=== PATIENT | female | born 1980 | race Caucasian/White ===

== ENCOUNTER 2024-11-12 08:26 | Outpatient (REF) | payer OTHER, SELFPAY ==
--- NOTE | ~2024-11-12 | XR_ITS ---
CLINICAL HISTORY: PAIN IN RIGHT ELBOW 3 view right elbow Comparison: None Findings: No acute fractures or dislocations. No significant loss of joint space, osteophytes, or erosions. No joint effusion. No radiopaque foreign body. IMPRESSION: 1. No acute findings This document has been electronically signed by: Lucas Hadley MD on 11/15/2024 10:43:43
== END 2024-11-12 08:27 | disposition home or self-care (01) ==
LOC: HO.XRAY 08:26
PROVIDERS: PCP Internal Medicine; Visit Provider Registered Nurse
DX: M25.521 Pain in right elbow (principal)
CPT/HCPCS: 73080

== ENCOUNTER → 2024-11-12 08:36 | Outpatient (BNV) | payer OTHER, SELFPAY | PROVIDERS: PCP Internal Medicine; Visit Provider Radiology Vascular & Interventional Radiology | DX: M25.521 Pain in right elbow (principal) | CPT/HCPCS: 73080 ==

== ENCOUNTER 2025-05-11 08:55 | Outpatient (AMB) | payer OTHER, SELFPAY ==
--- NOTE | 2025-05-11 09:02 | A.OFFVIS_ITS ---
Vital Signs 05/11/25 09:02 Height 5 ft 5 in Intake Visit Reasons: FM Allergies No Known Allergies Allergy (Verified 05/11/25 09:08) Medication List - Last Reconciled 05/11/25 by Gricelda William CNP acetaminophen (Tylenol) 650 mg PO Q6H PRN diclofenac sodium 75 mg PO BID PRN meclizine 25 mg PO Q12H PRN methylphenidate HCl ER (Concerta) 36 mg PO QAM methylphenidate HCl ER (Concerta) 54 mg PO QAM naproxen sodium (Aleve) 220 mg PO Q12H PRN ondansetron 4 mg PO DAILY rizatriptan 10 mg PO DAILY HPI Comments Details: Migraines have been better over the last 3 months. Getting about 1-2 migraines/month with nausea. Rizatriptan as needed helps, but makes her feel tired and hungover after taking. Concerta 54mg not helping as much as it was before. Notices that she is more easily distracted, not able to focus on tasks as well, and sometimes puts off doing tasks. 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 Continues with pain in both elbows and forearms. Ongoing numbness to fingertips and hands, cramping type pain occasionally in thumbs, L > R. Aleve helped some in the past, but no longer taking due to GI issues. Occasional burning and shooting pains to hands and arms. No new or increased weakness, but still sometimes drops objects. Rheumatology referral placed at last appointment, but she was not contacted with appointment. Started with pain to R elbow around 09/2024 that would come and go, but got more consistent in 11/2024. Numbness in hands and fingertips, L > R. Burning and shooting pains to hands. Dropping objects. Wakes with pain, numbness, and pins and needles in both hands. Aleve works better than diclofenac. Wrist braces do not help and make it worse. She is left-handed. She works as [employer]. No specific trigger, accident, or injury. She does not want NCV/EMG as previous test was very painful and she was in pain for days after. Concerta helps with focus and ability to complete tasks. Previously, she would start multiple tasks and feel overwhelmed. Uses rizatriptan as needed for migraines, but makes her tired. Occasional dizziness, feeling like room is spinning, and nausea, which may be triggered by certain head positions or movements. In the past, she was getting migraines 4-5x/month, using Aleve and Excedrin migraine, then rizatriptan if needed. Has visual aura, photophobia. Manuel rd feeling on dorsum of right hand intermittently continues. Did not feel like Concerta 36mg was helping like it was before. Did not notice much difference when she took medication compared to days she did not. Was having trouble focusing and completing tasks. Tried propranolol, gave her chest pains and made her face bloated. Topiramate did not help. She was diagnosed with ADHD 5 years ago by her psychiatrist. She did well on Adderall 50 mg a day for the first 3 years. It helped at first, but felt more anxious and paranoid. Tried Ritalin in the past. She has also had migraines since age 20. No triggers have been identified. There is no aura. She gets a disabling headache with nausea, vomiting, photophobia and sonophobia and has to be in a quiet dark room for one to 2 days. She has a family history of migraine in her maternal grandfather, mother and one of her sisters gets migraine. Burning and numbness in hands and legs exp. lateral legs. [facility] Medical History (Updated 05/11/25 @ 09:16 by Gricelda William CNP) COVID Anxiety Fibromyalgia Carpal tunnel syndrome of left wrist Bilateral carpal tunnel syndrome Sensory neuropathy Hypothyroidism Depression Hypertension ADHD (attention deficit hyperactivity disorder) Migraine Family History (Updated 05/10/25 @ 21:08 by Tawanna Klein MA) Maternal Grandmother Migraine Social History (Updated 05/10/25 @ 21:09 by Tawanna Klein MA) Patient Tobacco Use Status: Current everyday Tobacco user Review of Systems Const Denies chills, Denies daytime sleepiness, Reports difficulty sleeping, Denies fatigue, Denies fever(s), Denies frequent falls, Reports headache(s), Denies increased appetite, Denies poor appetite, Denies snoring, Denies weakness, Denies weight gain and Denies weight loss Eyes Denies loss of vision ENT Denies vertigo, Denies dizziness, Reports headache(s) and Reports neck pain Card Denies chest pain at rest, Denies chest pain with activity, Denies syncope, Denies leg edema, Denies palpitations, Denies dyspnea and Denies dyspnea on exertion Resp Denies cough, Denies dyspnea, Denies dyspnea on exertion and Denies snoring GI Denies abdominal pain, Denies constipation, Denies heartburn, Denies diarrhea and Denies nausea Denies urinary frequency, Denies urinary incontinence and Denies urinary urgency Musc Denies abnormal gait, Denies back pain, Reports myalgias, Reports arthralgias, Reports neck pain, Reports numbness, Denies stiffness and Reports tingling Neuro Denies abnormal gait, Denies vertigo, Denies dizziness, Denies syncope, Denies frequent falls, Reports headache(s), Denies lack of coordination, Denies loss of vision, Denies memory loss, Reports numbness, Denies Other visual disturbances, Denies restless legs, Denies seizure-like activity, Reports tingling, Denies paresthesias, Denies tremor(s) and Denies weakness Psych Reports anxiety, Denies depression, Reports difficulty concentrating, Denies memory loss, Denies visual hallucinations and Denies hallucinations Endo Denies fatigue and Denies palpitations Physical Exam Const Other: General Appearance:? normal, in no acute distress. Heart:? S1, S2 normal, no murmurs. Lungs:? clear anteriorly and posteriorly. Musculoskeletal:? normal. Extremities:? no edema. Psych:? alert, oriented, cognitive function intact, cooperative with exam. Neuro Other: Abnormal Neurological Findings:?5-/5 grasp, finger spread, APB bilaterally. 5-/5 L Triceps Mental Status: alert and oriented X 3. Normal attention, orientation, memory, and affect. Cranial Nerves: Pupils are equal, round, and reactive to light. External ocular muscles are intact. Visual colbert are full, no ptosis. Face is symmetrical, no facial weakness or droop. Facial sensations are normal. Tongue protrudes in midline. Palate elevates symmetrically. Shoulder shrugging is normal Motor Examination: As above, otherwise normal muscle tone, bulk and strength. No atrophy or fasciculations. No drift of the extended upper extremities. DTR 2+. Plantars are flexor. Straight Leg Raisin degrees. Sensory Exam: Normal light touch, temperature, pinprick, vibration, and joint- position sensations. Rhomberg sign is absent. Coordination: No ataxia. No titubation. Wnrsee-[id number], [id number]-[id number]-[id number] test, and rapid alternating movements were normal. Gait Exam: Within normal limits. Cerebellar Signs: Gxylea-qn-dusv and kuub-kl-[id number] is normal. No dysdiadochokinesia. Extrapyramidal System: No tremor, rigidity with normal facial expressions. No bradykinesia. No bradyphrenia. Normal arm swing and posture. No propulsion or retropulsion. Speech: Normal. No dysphasia or dysarthria. Results Reviewed Results Reviewed: 01/20/24 NCV of RUE showed only early CTS. 12/30/24 MRI C spine : Mild disc dessication and early spondylotic changes Assessment & Plan Assessment & Plan (1) Fibromyalgia: Comment: DX in 20s Code(s): M79.7 - Fibromyalgia Category: Medical Plan: Rheumatology referral placed. She does not want NCV/EMG as previous test was very painful and she was in pain for days after. Tried and failed wrist braces and NSAIDs (diclofenac and Aleve) (2) Migraine: Code(s): G43.909 - Migraine, unspecified, not intractable, without status migrainosus Category: Medical Qualifiers: Migraine type: unspecified Status migrainosus presence: without status migrainosus Intractability: not intractable Qualified Code(s): G43.909 - Migraine, unspecified, not intractable, without status migrainosus Plan: Continue rizatriptan 10mg 1 tablet as needed for migraines Continue ondansetron 4mg 1 tablet as needed for nausea (3) ADHD (attention deficit hyperactivity disorder): Code(s): F90.9 - Attention-deficit hyperactivity disorder, unspecified type Category: Medical Qualifiers: Attention deficit-hyperactivity disorder type: unspecified Qualified Code(s): F90.9 - Attention-deficit hyperactivity disorder, unspecified type Plan: Discussed treatment options, including trying different medication. She tried Adderall in the past, which helped but side effects of increased anxiety, and Ritalin. She was functioning well, working part-time as [employer] with no work performance issues, and no medication side effects. Recommend continuing current medication and patient agreed, can readdress in the future as needed. Continue Concerta 54mg 1 tablet in the morning Plan . Coding Level of Care Code Est Pt Level 4 (93601) Diagnoses Fibromyalgia M79.7 Migraine without status migrainosus, not intractable, unspecified migraine type G43.909 Migraine type: unspecified Status migrainosus presence: without status migrainosus Intractability: not intractable Attention deficit hyperactivity disorder (ADHD), unspecified ADHD type F90.9 Attention deficit-hyperactivity disorder type: unspecified
--- OUTSIDE RECORDS SUMMARY | 2025-05-11 09:08 | XMS_ITS | Clinical Summary ---
Author Organization [facility] it Address [address] [place] [address] Care Team Providers Care Display Fabrication Supervisor Name Role Phone Addy Givens MD Primary Care Provider [phone] Surgical History Surgery Date Site/Laterality Comments CERVICAL BIOPSY W/ LOOP ELECTRODE EXCISION PROCEDURE: SC CONIZATION CERVIX W/WO D&C RPR ELTRD EXC OVARIAN CYST REMOVAL 2003 PROCEDURE: SC OVARIAN CYSTECTOMY UNI/BI KIDNEY STONE SURGERY october 2015 PROCEDURE: SC NEPHROLITHOTOMY REMOVAL CALCULUS Medical History Medical History Date Comments Other specified personal his tory presenting hazards to health(V15.89) DX:Other specifie d personal history presenting hazards to health(V15.89) Kidney stones 12/24/2016 DX:Kidney stones ; COMMENT: S/p cystoscopy, stents (removed) W/recurrent UTI Fibromyalgia 04/03/2011 DX:Fibromyalgia Depression 04/03/2011 DX:Depression Migraines 11/14/2011 DX:Migraines Tobacco use disorder 09/13/2009 DX:Tobacco use disorder Adhd 11/26/2017 DX:ADHD Anxiety 11/26/2017 DX:Anxiety Hyperlipidemia 02/20/2021 DX:Hyperlipidemi a Family History Medical History Relation Name Comments Lymphoma Aunt Other: mva Father COPD Maternal Grandfather Diabetes Maternal Grandfather Arthritis Maternal Grandmother Diabetes Maternal Grandmother Thyroid disease Maternal Grandmother Dementia Paternal Grandfather Diabetes Paternal Grandfather Alzheimer's disease Paternal Grandmother Diabetes Paternal Grandmother Thyroid disease Paternal Grandmother Relation Name Status Comments Aunt Daughter Alive AGE 12 Father Maternal Grandfather Maternal Grandmother Alive Mother Alive RA Paternal Grandfather Alive Paternal Grandmother Sister Alive Son Alive AGE 15 Social History Tobacco Use Types Packs/Day Years Used Date Smoking Tobacco: Every Day Cigarettes Last attempted to quit: 12/14/2021 Smokeless Tobacco: Never Alcohol Use Standard Drinks/Week Comments Not Currently 0 (1 standard drink = 0.6 oz pur e alcohol) Comments Unknown Sex and Gender Information Value Date Recorded Sex Assigned at Not on file Legal Sex Female 6:34 PM EST Gender Identity Not on file Sexual Orientation Not on file Obstetrics History Last Filed Vital Signs Vital Sign Reading Time Taken Comments Blood Pressure 140/90 04/15/2022 8:44 AM EDT Sitting L Arm Pulse 100 04/15/2022 8:44 AM EDT Temperature - - Respiratory Rate - - Oxygen Saturation - - Inhaled Oxygen Concentration - - Weight 75.7 kg (166 lb 12.8 oz) 04/15/2022 8:44 AM EDT Height 165.1 cm (5' 5 ) 04/15/2022 8:44 AM EDT Body Mass Index 27.76 04/15/2022 8:44 AM EDT Plan of Treatment Health Maintenance Due Date Last Done Comments Breast Cancer Screening 1982 Pneumococcal Vaccine: Pediatrics (0 to 5 Years) and At-Risk Patients (6 to 49 Years) (1 of 2 - PCV) 2001 Cervical Cancer Screening: P ap Smear 04/20/2021 04/20/2018 Cholesterol Screening (Lipid Panel) 10/05/2022 Depression Screening 10/05/2022 HIV Screening 10/05/2022 Hepatitis C Screening 10/05/2022 Social Influencers of Health Screening 10/05/2022 DTaP,Tdap,and Td Vaccines (2 - Td or Tdap) 03/04/2024 03/04/2014 COVID-19 Vaccine (3 - 2023-2 5 season) 2024 03/10/2021, 02/17/2021 Influenza Vaccine (#1) 2025 Hepatitis B Vaccines Completed 10/28/2014, 04/18/2014, 03/18/2014 HIB Vaccines Aged Out No longer eligi ble based on patient's age to complete this topic HPV Vaccines Aged Out No longer eligi ble based on patient's age to complete this topic Hepatitis A Vaccines Aged Out No long er eligible based on patient's age to complete this topic IPV Vaccines Aged Out No longer eligi ble based on patient's age to complete this topic MMR Vaccines Aged Out No longer eligi ble based on patient's age to complete this topic Meningococcal ACWY Vaccine Aged Out N o longer eligible based on patient's age to complete this topic Meningococcal B Vaccine Aged Out No l onger eligible based on patient's age to complete this topic RSV Immunization Patients Under 20 months Aged Out No longer eligible b ased on patient's age to complete this topic Varicella Vaccines Aged Out No longer eligible based on patient's age to complete this topic Procedures Procedure Name Priority Date/Time Associated Diagnosis Comments PAP SMEAR Routine 04/20/2018 from Last 3 Months or Most Recently Relevant to Health Maintenance Results * Pap smear (04/20/2018) 04/20/2018 Narrative HISTORICAL TESTING LAB RESULTING AGENCY - 04/22/2018 1:27 PM EDT [id number] THINPREP PAP, IMAGED: NEGATIVE FOR SQUAMOUS INTRAEPITHELIAL LESION AND MALIGNANCY . CLUE CELLS ARE PRESENT. RESULT OF APTIMA HIGH RISK HPV ASSAY: NEGATIVE (SEROTYPES 16,18,31,33,35,39,45,51,52,56,58,59,66,68) COLBY DOBBINS(ASCP) (CASE ELECTRONICALLY SIGNED 04 22 2018) ADEQUACY: SATISFACTORY. ENDOCERVICAL/TRANSFORMATION ZONE COMPONENT ABSENT. SOURCE: THINPREP PAP HPV ANY DX: REFLEX 16 AND 18, CERVICAL, IMAGED: CLINICAL INFORMATION: HPV ANY DIAGNOSIS. Z12.4, Z01.419, HORMONES, PAP HX: POSITIVE HPV 2012 us Tangela Alfonso [facility] CYTOLOGY ORDERABLES Shazia choudhury Result HISTORICAL TESTING LAB RESULTING AGENCY from Last 3 Months or Most Recently Relevant to Health Maintenance Care Teams Display Fabrication Supervisor Relationship Specialty Start Date End Date Addy Givens MD PCP - General Internal Medicine 09/08/08
== END 2025-05-11 09:28 | disposition home or self-care (01) ==
LOC: HO.HSM 08:56
PROVIDERS: PCP Internal Medicine; Referring Provider Internal Medicine; Visit Provider Registered Nurse
DX: M79.7 Fibromyalgia (principal); G43.909 Migraine, unspecified, not intractable, without status migrainosus; F90.9 Attention-deficit hyperactivity disorder, unspecified type
CPT/HCPCS: 99214

== ENCOUNTER → 2025-05-11 08:55 | Outpatient (BNVA) | payer OTHER, SELFPAY | PROVIDERS: PCP Internal Medicine; Referring Provider Internal Medicine; Visit Provider Registered Nurse | DX: M79.7 Fibromyalgia (principal); G43.909 Migraine, unspecified, not intractable, without status migrainosus; F90.9 Attention-deficit hyperactivity disorder, unspecified type; Z79.899 Other long term (current) drug therapy | CPT/HCPCS: 99212 ==